=== PATIENT | female | born 1995 | race African-American/Black ===

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

== ENCOUNTER 2017-02-02 15:41 | Emergency (ER) | payer OTHER ==
[~2017-02-02] VITALS: Ht 162.6 cm; Wt 72.6 kg
[2017-02-02 17:17] LABS: ABSOLUTE NEUTROPHILS 10.9 thou/uL (1.4-8.2); BASOPHILS 0.3 % (0.0-2.0); HEMATOCRIT 30.2 % (37.0-47.0); HEMOGLOBIN 10.3 gm/dL (12.0-15.0); LYMPHOCYTES 16.4 % (24.0-44.0); MCH 29.5 pg (26.0-34.0); MCHC 34.2 g/dL (28.0-37.0); MCV 86.2 fL (80.0-100.0); MONOCYTES 6.6 % (1.0-8.0); PLATELET COUNT 273 thou/uL (150-400); POLYS 75.7 % (36.0-66.0); RBC 3.51 mil/uL (4.20-5.00); RDW 14.2 % (10.5-14.5); WBC 14.4 thou/uL (4.0-11.0)
[2017-02-02 17:25] LABS: MANUAL DIFF NO
[2017-02-02 17:28] LABS: CALCIUM 9.1 mg/dL (8.5-10.1); CREATININE 0.5 mg/dL (0.6-1.0); POTASSIUM 3.9 mmol/L (3.5-5.1)
[2017-02-02 17:34] LABS: ALBUMIN 2.8 g/dL (3.4-5.0); TOTAL BILIRUBIN 0.3 mg/dL (<0.1-1.0); TOTAL PROTEIN 6.6 g/dL (6.4-8.2)
[2017-02-02 17:48] VITALS: BP 106/69
== END 2017-02-02 17:50 | disposition short-term general hospital (02) ==
LOC: ER 15:41
PROVIDERS: Emergency Medicine
DX: O26.892 Other specified pregnancy related conditions, second trimester (principal); Z3A.23 23 weeks gestation of pregnancy; R10.84 Generalized abdominal pain

== ENCOUNTER 2020-07-02 20:44 | Emergency (ER) | payer OTHER ==
[~2020-07-02] VITALS: Ht 154.9 cm; Wt 88.5 kg
[2020-07-02 23:30] VITALS: BP 102/60
[2020-07-03] MEDS ORDERED: FLEXERIL PO (00:23)
== END 2020-07-03 00:20 | disposition home or self-care (01) ==
LOC: ER 20:44
DX: M25.512 Pain in left shoulder (principal); M54.2 Cervicalgia; M54.9 Dorsalgia, unspecified; R53.1 Weakness; R06.02 Shortness of breath; V49.49XA Driver injured in collision with other motor vehicles in traffic accident, initial encounter; Y93.I9 Activity, other involving external motion; Y92.488 Other paved roadways as the place of occurrence of the external cause; Y99.8 Other external cause status